=== PATIENT | female | born 1935 | race Caucasian/White ===

== ENCOUNTER 2018-11-19 08:44 | Outpatient (CLI) | payer OTHER ==
--- NOTE | 2018-11-19 16:24 | Diagnostic Imaging Report ---
JOSE CANALES [facility] [address] [facility].[address] [address] Report Submission Date: Nov 19, 2018 9:32:44 AM SAP BODS DEVELOPER Patient Study Name: АЛЕКСАНДР SALAZAR Date: Nov 19, 2018 8:00:49 AM SAP BODS DEVELOPER Modality Type: US Gender: O Description: US RENAL : 33 Institution: [facility] Physician: JOSE CANALES Examination: Ultrasound kidneys History: Hematuria Comparison exams: None provided. Findings: Right kidney measures 9.5 cm in length. Left kidney measures 9.2 cm in length. No evidence for cortical mass bilaterally. Thinned cortical margins. No abnormal dilation of the intrarenal collecting system. Visualized bladder margin without gross abnormality. Cystic area projecting superior to the bladder measuring 4.5 x 3.4 x 4.0 cm. Impression: Thinned renal cortical margins consistent with age appropriate medical renal disease. No evidence for cortical mass or obstruction. Cystic area projecting superior to the bladder consider obtaining CT Abdomen/pelvis to further evaluate. Electronically signed on Nov 19, 2018 9:32:44 AM SAP BODS DEVELOPER by: Scott RICKETTS
== END 2018-11-19 08:45 ==
LOC: RAD 08:44
PROVIDERS: ATTEND Nurse Practitioner Family
DX: R31.9 Hematuria, unspecified (principal); R79.9 Abnormal finding of blood chemistry, unspecified; R93.5 Abnormal findings on diagnostic imaging of other abdominal regions, including retroperitoneum
CPT/HCPCS: 76770